=== PATIENT | male | born 1970 | race Caucasian/White ===

== ENCOUNTER → 2021-01-21 11:02 | Outpatient (BNVA) | payer OTHER, SELFPAY | PROVIDERS: PCP Family Medicine Adult Medicine; Visit Provider Family Medicine | DX: Z02.4 Encounter for examination for driving license (principal); F17.210 Nicotine dependence, cigarettes, uncomplicated; K21.9 Gastro-esophageal reflux disease without esophagitis; Z13.220 Encounter for screening for lipoid disorders | CPT/HCPCS: 80053; 80061; 85025; G0103 ==

== ENCOUNTER 2024-05-06 04:17 | Emergency (ER) | payer OTHER, SELFPAY ==
[2024-05-06] VITALS (10 sets, daily range): BP systolic 113–166; BP diastolic 63–101; PULSE 64–78; RESP 18–22; TEMP 36.7; O2SAT 91–97; BMI 23.0
[2024-05-06] MEDS: fentaNYL 50 mcg/mL INJ 2mL 100 MCG IVP (05:47)
[2024-05-06] MEDS: ondansetron 2 mg/ML SDV 2 mL 4 MG IVP (05:52)
[2024-05-06 06:10] LABS: Basophils # 0.1 10^3/uL (0.0-0.1); Basophils % 0.3 %; Eosinophils # 0.1 10^3/uL (0.0-0.8); Eosinophils % 0.3 %; Hematocrit 39.3 % (37-53); Lymphocytes # 1.4 10^3/uL (0.8-4.8); Lymphocytes % 9.8 %; Mean Corpuscular HGB Conc 34.4 g/dL (30-55); Mean Corpuscular Hemoglobin 31.9 pg (27-33); Mean Corpuscular Volume 92.9 fl (82-101); Mean Platelet Volume 9.1 fL (7.4-10.4); Monocytes # 0.9 10^3/uL (0.2-0.9); Monocytes % 6.1 %; Neutrophils # 11.99 10^3/uL (1.8-7.7); Neutrophils % 83.2 %; Nucleated Red Blood Cells % 0 %; Platelet Count 319 10^3/cmm (157-399); Red Blood Count 4.23 10^6/uL (3.85-5.65); Red Cell Distribution Width 11.8 % (12.1-15.1); White Blood Count 14.42 10^3/uL (3.29-11.43)
[2024-05-06] MEDS: BUPivacaine 0.5% INJ 10 mL INJECTION (06:11)
[2024-05-06] MEDS: lidocaine-epi 1% 20 mL INJ 10 ML INJECTION (06:11)
--- NOTE | 2024-05-06 06:20 | W.ED.SKABFB ---
HPI - Skin/Abscess/Foreign Bdy General: Chief complaint: Skin/Abscess/Foreign Body Stated complaint: Absesse on Bottom Time Seen by Provider: 05/06/24 05:11 History of Present Illness: 53-year-old male with increasing gluteal pain, and swelling on the right side for the past few days. Was seen at urgent care yesterday, placed on doxycycline. He was not improved any after 2 doses of doxycycline so presents this morning. Pain is intense. He has had a temperature he says at home. He had the flu last week though. No drainage from the site. No vomiting. Related Data Home Medications ?Medication ?Instructions ?Recorded ?Confirmed esomeprazole magnesium 20 mg 20 mg PO DAILY 10/23/20 08/11/23 capsule,delayed release (Nexium) loratadine 10 mg tablet (Claritin) 10 mg PO DAILY 10/23/20 08/11/23 Previous Rx's ?Medication ?Instructions ?Recorded meloxicam 15 mg tablet 15 mg PO DAILY arthritis #30 tabs 11/14/23 clindamycin HCl 300 mg capsule 300 mg PO Q6H 10 days #40 caps 05/06/24 oxycodone-acetaminophen 7.5 mg-325 1 tab PO Q6H PRN pain #8 tabs 05/06/24 mg tablet (Percocet) Allergies Allergy/AdvReac Type Severity Reaction Status Date / Time latex Allergy rash Uncoded 08/11/23 13:21 [facility] ED PFSH: Medical History Osteoarthritis of sacroiliac region Right SIJ and right hip Well adult on routine health check Colonoscopy planned Low back strain Smoking greater than 30 pack years Chronic GERD Allergic rhinitis due to allergen Surgical History H/O prior ablation treatment History of repair of anterior cruciate ligament of left knee Family History Other Hyperlipidemia Hypertension Social History Smoking and tobacco/nicotine status: current every day tobacco/nicotine user cigarettes Packs smoked per day: 0.5 Years cigarettes smoked: 35 Alcohol intake: current Alcohol intake frequency: few times a month Substance/Drug Use: never Marital status: Life Partner Number of children: 1 Current occupational status: employed Physical Exam Const: COMMON NORMALS: no acute distress GENERAL APPEARANCE: cooperative; not ill appearing and not frail appearing HENMT: COMMON NORMALS: normocephalic, atraumatic and Normal external nose present HEAD & SCALP: normocephalic and atraumatic FACE & SINUS: normal facial exam and face symmetric NOSE: Normal external nose present Eye: COMMON NORMALS: Equal, round and reactive pupils present and EOMs intact bilaterally PUPIL: Yes Equal, round and reactive pupils present Neck/C-Spine: GENERAL: Yes trachea midline Chest: CHEST: Yes Symmetrical chest wall rise Resp: COMMON NORMALS: normal respiratory effort, No retractions and No use of accessory muscles Cardio: COMMON NORMALS: regular rate and regular rhythm RATE: regular rate RHYTHM: regular rhythm GI: COMMON NORMALS: Normal to inspection, nondistended, normoactive bowel sounds present Extremity: COMMON NORMALS: no pedal edema Neuro: GREGG COMA SCALE: document GCS findings [place] coma scale eye opening: Spontaneous [place] coma scale verbal response: Orientated [place] coma scale motor response: Obey commands Gregg coma scale total score: 15 SENSORY EXAM: Yes extremities (intact) Psych: COMMON NORMALS: speech normal SPEECH: Yes normal speech Skin: NARRATIVE SKIN EXAM: Examination of the right buttock reveals swollen, indurated, cellulitic right gluteal crease. No drainage. Quite tender. Warm to the touch. Procedures Abscess I/D Site: marcelo-rectal (Right gluteal) Side (if applicable): right Sedation/analgesia: fentanyl Local Anesthetic: lidocaine 1%, bupivacaine 0.5% and with epi Amount of anesthesia used (mL): 10 Technique: incised with #11 blade Amount of fluid expressed (mL): 50 Irrigation: Yes Packing used?: plain Course Vital Signs: Vital signs: Vital Signs Temperature 98.0 F 05/06/24 04:20 Pulse Rate 78 05/06/24 04:20 Respiratory Rate 18 05/06/24 05:47 Blood Pressure 116/81 05/06/24 04:20 Pulse Oximetry 96 05/06/24 05:47 Oxygen Delivery Me thod Room Air 05/06/24 04:20 MDM - Skin/Abscess/Foreign Bdy Medicial Decision Making Abscess incised and drained under local anesthesia. Quite a large amount of purulent pungent material drained. White blood cell count is 14. He is feeling improved. He is not nauseated or vomiting. He will be given a dose of clindamycin here. Home on clindamycin as well as his doxycycline. Pain control. Outpatient follow-up. Lab Data 05/06/24 05:55 05/06/24 05:55 Laboratory Results WBC 14.42 10^3/uL (3.29-11.43) H 05/06/24 05:55 RBC 4.23 10^6/uL (3.85-5.65) 05/06/24 05:55 Hgb 13.50 g/dL (11.27-16.99) 05/06/24 05:55 Hct 39.3 % (37-53) 05/06/24 05:55 MCV 92.9 fl (82-101) 05/06/24 05:55 MCH 31.9 pg (27-33) 05/06/24 05:55 MCHC 34.4 g/dL (30-55) 05/06/24 05:55 RDW 11.8 % (12.1-15.1) L 05/06/24 05:55 Plt Count 319 10^3/cmm (157-399) 05/06/24 05:55 MPV 9.1 fL (7.4-10.4) 05/06/24 05:55 Neut % (Auto) 83.2 % 05/06/24 05:55 Lymph % (Auto) 9.8 % 05/06/24 05:55 [place] % (Auto) 6.1 % 05/06/24 05:55 Eos % (Auto) 0.3 % 05/06/24 05:55 Baso % (Auto) 0.3 % 05/06/24 05:55 Neut # (Auto) 11.99 10^3/uL (1.8-7.7) H 05/06/24 05:55 Lymph # (Auto) 1.4 10^3/uL (0.8-4.8) 05/06/24 05:55 [place] # (Auto) 0.9 10^3/uL (0.2-0.9) 05/06/24 05:55 Eos # (Auto) 0.1 10^3/uL (0.0-0.8) 05/06/24 05:55 Baso # (Auto) 0.1 10^3/uL (0.0-0.1) 05/06/24 05:55 Nucleated RBC % (auto) 0 % 05/06/24 05:55 Nucleated RBCs # 0.0 /100WBC 05/06/24 05:55 No radiology studies performed this visit Discharge Plan Discharge Patient Disposition: Home Clinical Impression: Abscess of skin or subcutaneous tissue Qualifiers: Site of cutaneous abscess: buttock Qualified Code(s): L02.31 - Cutaneous abscess of buttock Condition: Stable Prescriptions: New clindamycin HCl 300 mg capsule 300 mg PO Q6H 10 Days Qty: 40 0RF oxycodone-acetaminophen [Percocet] 7.5-325 mg tablet 1 tab PO Q6H PRN (Reason: pain) Qty: 8 0RF No Action esomeprazole magnesium [Nexium] 20 mg capsule,delayed release(DR/EC) 20 mg PO DAILY loratadine [Claritin] 10 mg tablet 10 mg PO DAILY meloxicam 15 mg tablet 15 mg PO DAILY Qty: 30 3RF Discharge Orders: Discharge ED (Routine); Ordered 05/06/24 Ordered By: Speedy Harris Patient Instructions: Abscess (ED), Opioid Safety, Pain Management Activity Restrictions/Additional Instructions: Keep packing trimmed to skin level. After 48 hours, it may be pulled if it has not come out already. You may shower. Wash with soap and water. Do not soak. Antibiotics as directed. Pain medication for significant pain. Return for fever greater than 100 ?F despite 3-4 doses of antibiotics, worsening pain, swelling, etc. despite treatment, vomiting liquids, any other concerning symptoms. See your doctor in 3 to 4 days for wound check. Call for an appointment. Stay on your doxycycline as well as the clindamycin you were prescribed this morning. You may use ibuprofen for pain as well. Print Language: Divehi Coding Level of Care Code ED Production Lapping Machine Operator for Kalia Mcarthur
[2024-05-06 06:31] LABS: Alanine Aminotransferase 6 U/L (0-41); Albumin Level 3.7 g/dL (3.5-5.2); Alkaline Phosphatase 28 U/L (40-130); Aspartate Amino Transferase 10 U/L (0-40); Blood Urea Nitrogen 18 mg/dL (6-20); C Reactive Protein 125.4 mg/L (0.0-4.9); Carbon Dioxide 21 mmol/L (22-29); Chloride 99 mmol/L (98-107); Creatinine Clr Calc Pharmacy 112.1542; Globulin 2.9 g/dL (1.3-4.6); Glomerular Filtration Rate 100.7 mL/min (90-130); Glucose 107 mg/dL (65-115); Osmolality Calculated 280 mOsm/kg (285-295); Sodium 134 mmol/L (136-145); Total Bilirubin 0.4 mg/dL (0.15-1.2); Total Protein 6.6 g/dL (6.6-8.7)
[2024-05-06] MEDS: ketorolac 30 mg/mL INJ IVP (06:42)
[2024-05-06] MEDS: morphine 4 mg/mL SDV 1 mL IVP (06:43)
[2024-05-06] MEDS: clindamycin 900 MG/50 ML PREMIX 100 MG IV (06:45)
== END 2024-05-06 07:23 | disposition home or self-care (01) ==
PROVIDERS: Emergency Provider Emergency Medicine
DX: L02.31 Cutaneous abscess of buttock (principal); F17.210 Nicotine dependence, cigarettes, uncomplicated
CPT/HCPCS: 10060; 80053; 85025; 86140; 96365; 96375; 99284; J1885; J2270; J2405; J3010; J3490

== ENCOUNTER 2024-07-24 07:10 | Day surgery (SDC) | payer OTHER, SELFPAY ==
[2024-07-24] VITALS (13 sets, daily range): BP systolic 99–135; BP diastolic 60–84; PULSE 51–75; RESP 16–19; TEMP 36.2–36.6; O2SAT 96–99; BMI 24.1
--- NOTE | 2024-07-24 08:04 | P.ANESASSM_ITS ---
Pre-Anesthetic Assessment Height/Weight: Height 1.8 m Weight 78.471 kg Temp Pulse Resp BP Pulse Ox O2 Del Method 97.8 F 60 16 130/77 99 Room Air 07/24/24 07:36 07/24/24 07:36 07/24/24 07:36 07/24/24 07:36 07/24/24 07:36 07/24/24 07:43 Operation Date: 07/24/24 09:00 Proposed Procedures p RECTUM Exam Under Anesthesia 27960 [id number] K61.0(Not Applicable) - Mauro Syed MD s POSSIBLE Fistulotomy(Not Applicable) - Mauro Syed MD s POSSIBLE Seton Placement(Not Applicable) - Mauro Syed MD s POSSIBLE Incision And Drainage Perianal Abscess(Not Applicable) - Mauro Syed MD Familial anesthetic complications: None Was Beta Alley taken within 24 hours: N/A Was Clonidine taken within 24 hours: N/A Last intake: Intake Last Liquid Date 07/23/24 Last Liquid Time 18:00 Last Solid Date 07/23/24 Last Solid Time 18:00 Social Tobacco and No alcohol Exam alert, oriented x 3, clear to auscultation bilaterally and regular rate & rhythm Airway Mallampati: Class I Dentition: other (no teeth) Anesthetic Plan ASA status: 1 Anesthesia: General Risk of > 500 ml blood loss (7ml/kg in children): No Medications/Allergies Home Medications ?Medication ?Instructions ?Recorded ?Confirmed ?Last Taken ?Type celecoxib 200 mg capsule 200 mg PO BID 07/11/2407/2307/24/24 04:00 History Allergies Allergy/AdvReac Type Severity Reaction Status Date / Time latex Allergy Severe ALGY-Rash Verified 07/23/24 09:52 [facility] Anesthesia Medical History Osteoarthritis of sacroiliac region Right SIJ and right hip Well adult on routine health check Colonoscopy planned Low back strain Smoking greater than 30 pack years Chronic GERD Allergic rhinitis due to allergen Surgical History H/O prior ablation treatment History of repair of anterior cruciate ligament of left knee Family History Other Hyperlipidemia Hypertension Social History Smoking and tobacco/nicotine status: current every day tobacco/nicotine user cigarettes Packs smoked per day: 0.5 Years cigarettes smoked: 35 Alcohol intake: current Alcohol intake frequency: few times a month Substance/Drug Use: never Marital status: Life Partner Number of children: 1 Current occupational status: employed
[2024-07-24] MEDS: sodium chloride 0.9% 1,000 ML 30 ML IV (08:14)
[2024-07-24] MEDS: midazolam 1 mg/mL INJ 2 mL 2 MG IVP (08:24)
--- NOTE | 2024-07-24 08:28 | W.PM.OPSUD ---
Surgery/Procedure H&P Update DATE OF PROCEDURE: July 24, 2024 DATE H&P PERFORMED: 07/11/24 H&P UPDATE INFORMATION: I have reviewed H&P completed within last 30 days, I have examined patient prior to procedure and No changes to prior documentation PLANNED PROCEDURE: Operation Date: 07/24/24 09:00 Proposed Procedures p RECTUM Exam Under Anesthesia 66507 [id number] K61.0(Not Applicable) - Mauro Syed MD s POSSIBLE Fistulotomy(Not Applicable) - Mauro Syed MD s POSSIBLE Seton Placement(Not Applicable) - Mauro Syed MD s POSSIBLE Incision And Drainage Perianal Abscess(Not Applicable) - Mauro Syed MD
[2024-07-24] MEDS: ceFAZolin 2,000 mg SDV 2000 MG IVP (08:50)
--- NOTE | 2024-07-24 09:13 | P.OP_ITS ---
Operative Report Date of procedure: July 24, 2024 Pre-op diagnosis: Perianal abscess Post-op diagnosis: same Post-op findings: Perianal abscess cavity encountered at 11:00. Packed with quarter inch Nu Gauze Procedure done: Exam under anesthesia of the rectum. Incision and drainage of perianal abscess. Implants: N/A Specimens removed/disposition: Send cultures from abscess cavity. Pathology: none sent Surgeon: Mauro Syed MD Machine Records Units Supervisor: N/A Anesthesia: MAC Estimated blood loss (mL): 10 Complications: N/A Findings: Perianal abscess cavity encountered at 11:00. Packed with quarter inch Nu Gauze. No fistula found. Condition: stable Disposition: same day Brief History: 53-year-old male who presented with a perianal abscess. Discussed risk and benefits and patient agreed to proceed with exam under anesthesia of the rectum, possible incision and drainage of perianal abscess, possible seton placement, possible fistulotomy. Procedure: Obtained consent in preop area. Patient was brought into the OR. SCDs were on and functioning. MAC was induced. Patient was placed in left lateral decubitus. Perineum was prepped and draped in usual sterile fashion. Fullness was palpated at 11:00. A cruciate incision was carried out over this area. 5 cc of purulence were drained. Cultures were obtained. Adequate hemostasis was achieved with electrocautery. Digital rectal exam was carried out and was unremarkable. A Dyson retractor was placed in the rectum and no fistula was found. The abscess cavity was packed with quarter inch Nu Gauze. Gauze panties were applied. The patient woke up from anesthesia without any complications.
[2024-07-24] MEDS: oxyCODONE 5 mg IR Tab/Cap PO (10:15)
--- NOTE | 2024-07-24 11:00 | ANE.PACU2 ---
Inpatient post-anesthesia follow up: Airway intact: Yes Vital signs: Temperature 97.8 F Pulse Rate 57 Respiratory Rate 16 Blood Pressure 135/84 Pulse Oximetry 98 Oxygen Delivery Me thod Room Air Oxygen Flow Rate 8 Fraction of Inspir ed Oxygen Hydration adequate: Yes Nausea and vomiting: No Pain level: 1 Mental status: Baseline
== END 2024-07-24 11:00 | disposition home or self-care (01) ==
PROVIDERS: PCP Family Medicine; Visit Provider Student in an Organized Health Care Education/Training Program
PROC: (CPT 46050; principal; 2024-07-24 08:50)
PROC: (CPT 46050; 2024-07-24 08:50)
DX: K61.0 Anal abscess (principal); F17.210 Nicotine dependence, cigarettes, uncomplicated; Z79.1 Long term (current) use of non-steroidal anti-inflammatories (NSAID); Z91.040 Latex allergy status
CPT/HCPCS: 46050; 87070; 87075; 87205; J0690; J1100; J2250; J2405; J2704; J3010; J3490; J7030; J9999